=== PATIENT | female | born 1950 | race Caucasian/White ===

== ENCOUNTER 2017-12-14 09:29 | Day surgery (SDC) | payer MEDICARE ==
--- NOTE | 2017-12-14 08:46 | HP ---
DATE OF SURGERY: 12/14/2017 HISTORY OF PRESENT ILLNESS: The patient is a 67 year-old with prior history of anal-rectal cancer, has undergone treatment and has been doing okay per the oncologist who removed the Port-A-Cath. PAST MEDICAL HISTORY: Anal cancer. Anxiety. Female cancer in the past. PAST SURGICAL HISTORY: Tonsil surgery. Foot surgery. Cholecystectomy. Colon resection. Hemorrhoid surgery. History of cancer biopsy at the time of surgery and Port-A-Cath in the past by Dr. Caldera. Hysterectomy in the past. Renal stones in the past. Hip surgery in the past. MEDICATIONS: Glucosamine, Turmeric, vitamin B-12, vitamin C, vitamin E, multivitamin. ALLERGIES: CODEINE. FAMILY HISTORY: Negative in regards to this problem. SOCIAL HISTORY: Two pack per day smoker. She denies alcohol abuse. REVIEW OF SYSTEMS: Twelve systems reviewed. No chest pain or palpitations other systems negative or noncontributory as above and per preadmission questionnaire. PHYSICAL EXAMINATION: GENERAL: No acute distress. HEENT: Sclerae nonicteric. NECK: No JVD. CHEST: Equal excursion, nonlabored breathing. CVS: Regular rate and rhythm. ABDOMEN: Soft. EXTREMITIES: No significant edema. NEURO: Alert, oriented, moving extremities symmetrically. No gross motor deficits noted. SKIN: Port site looks fine. IMPRESSION: History of anal cancer. No longer using her port and desires removal. I feel she is a candidate. Risks and benefits explained in detail including but not limited to bleeding or infection, small risk of hematoma or seroma formation, infection possibly requiring packing but not limited to. She understands and agrees to the planned procedure, will proceed with outpatient removal of Port-A-Cath.
[2017-12-14] MEDS ORDERED: Versed 2 MG/2 ML Injection IV ONE (09:30)
[2017-12-14] MEDS ORDERED: DIPRIVAN 200 MG/20 ML IV ONE (09:30)
[2017-12-14] MEDS ORDERED: SUBLIMAZE 100 MCG/2 ML IV ONE ×2 (09:30→09:51)
[2017-12-14] MEDS ORDERED: Xylocaine-Mpf 2% 5 Ml Vial IJ ONE (09:30)
[2017-12-14] MEDS ORDERED: KEFZOL 1 GM IJ ONE (09:30)
[2017-12-14] MEDS ORDERED: Lactated Ringers 1,000 ML IV SCH (10:00)
[2017-12-14] MEDS ORDERED: SUBLIMAZE 100 MCG/2 ML ONE (10:08)
[2017-12-14] MEDS ORDERED: XYLOCAINE 1% HCL 20 ML MDV ONE (11:27)
[2017-12-14] MEDS ORDERED: Lactated Ringers 1,000 ML IV ONE ×2 (11:27→12:18)
[2017-12-14] MEDS ORDERED: KEFZOL 1 GM ONE (12:57)
[2017-12-14 15:02] VITALS: O2SAT 97
--- NOTE | 2017-12-14 15:06 | OP ---
SURGERY DATE/TIME: 12/14/2017 1249 PREOPERATIVE DIAGNOSIS: History of anal cancer. No longer needing port, undesired Port-A-Cath. POSTOPERATIVE DIAGNOSIS: History of anal cancer. No longer needing port, undesired Port-A-Cath. PROCEDURE: Removal of tunnel Port-A-Cath. SURGEON: Dr. Itz Knapp. LAN MANAGER: Romaine Plaza, Medical Student III. ANESTHESIA: MAC. 1% lidocaine local. ESTIMATED BLOOD LOSS: Minimal. INDICATIONS: As noted above. Risks and benefits explained in detail and not limited to and consent obtained. DESCRIPTION OF PROCEDURE AND FINDINGS: The patient is taken to the operating room. MAC anesthesia introduced. After official time out and no disagreement with planned procedure, chest prepped and draped in usual sterile fashion. 1% lidocaine local infiltrated in field pattern around the port pocket area. Transverse incision made through the old scar. Dissection carried down. Two Prolene sutures carefully removed. The port and catheter were gently mobilized upwards and removed intact and passed off. Tunnel track closed with 3-0 Vicryl. Fibrous pocket closed with 3-0 Vicryl. Subcu closed with 3-0 Vicryl. Subcu closed with 3-0 Vicryl. Skin closed with 4-0 Vicryl. Steri-Strips and sterile dressing applied. The patient tolerated the procedure well. There were no immediate complications. She did not have any family out in the waiting area to discuss the findings with.
[2017-12-14 15:09] VITALS: BP 131/75; PULSE 86
== END 2017-12-14 14:50 | disposition home or self-care (01) ==
LOC: SDC 09:29
PROVIDERS: ATTEND Surgery
DX: Z45.2 Encounter for adjustment and management of vascular access device (principal); Z85.048 Personal history of other malignant neoplasm of rectum, rectosigmoid junction, and anus; F41.9 Anxiety disorder, unspecified; Z90.49 Acquired absence of other specified parts of digestive tract; Z79.899 Other long term (current) drug therapy; Z72.0 Tobacco use
CPT/HCPCS: 94250; J0690; J2250; J2704; J3010